=== PATIENT | female | born 1975 | race Caucasian/White ===

== ENCOUNTER → 2016-07-14 | Outpatient (CLI) | payer OTHER ==
[2016-07-14 13:34] LABS: BASO % 0.3 % (0.0-1.0); EOS # 0.2 K/mm3 (0.0-0.50); EOS % 1.7 % (0.0-3.0); LARGE UNSTAINED CELL # 0.1 K/mm3 (0.0-0.4); LARGE UNSTAINED CELL % 1.5 % (0.0-4.0); LYMPH # 1.2 K/mm3 (1.5-4.5); LYMPH % 14.1 % (24.0-44.0); MEAN CORPUSCULAR HGB CONC 34.6 g/dl (32.0-36.5); MEAN CORPUSCULAR VOLUME 98.3 fl (80.0-96.0); MONO # 0.3 K/mm3 (0.0-0.8); MONO % 3.8 % (0.0-5.0); NEUTROPHILS # 6.8 K/mm3 (1.8-7.7); NEUTROPHILS % 78.6 % (36.0-66.0); PLATELET COUNT, AUTOMATED 242 k/mm3 (150-450); RED CELL DISTRIBUTION WIDTH 13.3 % (11.5-14.5); WHITE BLOOD COUNT 8.6 K/mm3 (4.0-10.0)
[2016-07-14 14:01] LABS: HBsAg Prenatal NEGATIVE (NEGATIVE)
[2016-07-14 14:54] LABS: HIV SCRN NEGATIVE (NEGATIVE)
[2016-07-14 14:55] LABS: CONTROL LINE INT CTR LINE PRESENT; HIV SCRN1 NEGATIVE (NEGATIVE)
== END ==
LOC: M WUC 08:44
PROVIDERS: ATTEND Advanced Practice Midwife
DX: Z34.81 Encounter for supervision of other normal pregnancy, first trimester (principal)

== ENCOUNTER → 2016-07-16 | Outpatient (CLI) | payer OTHER ==
--- NOTE | 2016-07-16 11:22 | REP ---
OBSTETRIC SONOGRAPHY: HISTORY: Supervision of . FINDINGS: Scanning demonstrates a viable single intrauterine gestation in a transverse, head to the maternal right lie. motion is observed and heart rate is recorder 153 beats per minute. A posterior placenta is seen without evidence of abruption. The placenta appears to extend down over the internal cervical os on today's images. Placenta previa is suspected. No extrauterine abnormality is observed. No gross anomaly is seen. it is too early for complete anatomic screening. cranium, choroid plexus, left-sided stomach, abdominal wall cord insertion, urinary bladder, and upper and lower extremities are seen and appear normal. Closed cervical length is 3.6 cm. BIOMETRY CHART: CRL 6.2 cm = 12 weeks 4 days BPD 2.0 cm = 13 weeks 1 day HC 7.2 cm = 13 weeks 0 days AC 5.7 cm = 12 weeks 4 days FL 0.7 cm = 12 weeks 1 day HC/AC ratio normal 1.26 Cephalic index 0.76. Estimated weight 58 grams, 0 pounds 2 ounces, 45th percentile for 12 weeks 1 day. IMPRESSION: 1. Viable single intrauterine gestation at 12 weeks 5 days by today's composite sonographic criteria. [place] by today's sonography is January 23, 2017.2. Posterior placenta appears to cover the internal cervical os at this stage of . Consider follow-up scan. Signed by Davi Navarrete MD 07/16/2016 06:34 P
== END ==
LOC: M SMT 09:28
PROVIDERS: ATTEND Advanced Practice Midwife
DX: Z34.81 Encounter for supervision of other normal pregnancy, first trimester (principal)

== ENCOUNTER → 2016-08-13 | Outpatient (CLI) | payer OTHER | LOC: M SMT 09:20 | PROVIDERS: ATTEND Specialist | DX: R76.0 Raised antibody titer (principal) ==

== ENCOUNTER → 2016-08-13 | Outpatient (REF) | payer OTHER | LOC: M LAB REF 12:45 | PROVIDERS: ATTEND Specialist | DX: Z34.82 Encounter for supervision of other normal pregnancy, second trimester (principal) ==

== ENCOUNTER → 2016-09-05 | Outpatient (CLI) | payer OTHER | LOC: M WUC 12:44 | PROVIDERS: ATTEND Specialist | DX: Z34.82 Encounter for supervision of other normal pregnancy, second trimester (principal) ==

== ENCOUNTER → 2016-09-10 | Outpatient (CLI) | payer OTHER ==
--- NOTE | 2016-09-10 13:51 | REP ---
OB ULTRASOUND: Real-time sonographic evaluation of the gravid uterus is performed utilizing transabdominal and endovaginal technique. There is a single living intrauterine gestation with an estimated gestational age of 20 weeks 1 day EDC 01/27/2017. Today's measurements indicate appropriate growth. BPD 50 mm = 21 weeks 2 days, 80th percentile HC 180 mm = 20 weeks 3 days, 60th percentile AC 155 mm = 20 weeks 5 days, 63rd percentile Femur length 32 mm = 20 weeks 0 days, 49th percentile HC/AC ratio 1.16 within normal range. Estimated weight 354 grams, 59th percentile. Cervix closed and measures 3.6 cm in length. heart rate 139 beats per minute. SEEN/GROSSLY UNREMARKABLE Lateral ventricles Yes Posterior fossa Yes Upper lip Yes Four-chamber heart Yes LVOT Yes RVOT Yes Stomach Yes Cord insertion Yes Three vessel cord Yes Kidneys Yes Bladder Yes Spine Yes position: Breech. Placenta: On the right and grade 1 with no previa or abruption. Amniotic fluid: Within normal limits. Signed by De Abad MD 09/10/2016 03:42 P
== END ==
LOC: M RAD 10:38
PROVIDERS: ATTEND Specialist
DX: Z34.82 Encounter for supervision of other normal pregnancy, second trimester (principal)

== ENCOUNTER → 2016-09-10 | Outpatient (CLI) | payer OTHER | LOC: M RAD 08:24 → M SMT 08:24 | PROVIDERS: ATTEND Specialist | DX: Z34.82 Encounter for supervision of other normal pregnancy, second trimester (principal); O44.22 Partial placenta previa NOS or without hemorrhage, second trimester ==

== ENCOUNTER → 2016-10-14 | Outpatient (CLI) | payer OTHER ==
[2016-10-14 20:28] LABS: ALBUMIN 3.4 GM/DL (3.2-5.2); ALBUMIN/GLOBULIN RATIO 0.87 (1.00-1.93); ALKALINE PHOSPHATASE 65 U/L (45-117); ALT/SGPT 38 U/L (12-78); BILIRUBIN,DIRECT < 0.1 MG/DL (0.0-0.2); BILIRUBIN,TOTAL 0.2 MG/DL (0.2-1.0); TOTAL PROTEIN 7.3 GM/DL (6.4-8.2)
[2016-10-15 08:00] LABS: AST/SGOT 27 U/L (15-37)
== END ==
LOC: M WUC 16:06 → M SMT 16:06
PROVIDERS: ATTEND Advanced Practice Midwife
DX: R21 Rash and other nonspecific skin eruption (principal)

== ENCOUNTER → 2016-10-24 | Outpatient (CLI) | payer OTHER ==
[2016-10-24 17:16] LABS: BASO % 0.1 % (0.0-1.0); EOS % 0.6 % (0.0-3.0); LARGE UNSTAINED CELL # 0.1 K/mm3 (0.0-0.4); LYMPH # 1.5 K/mm3 (1.5-4.5); MEAN CORPUSCULAR HEMOGLOBIN 33.9 pg (27.0-33.0); MEAN CORPUSCULAR HGB CONC 32.1 g/dl (32.0-36.5); MEAN CORPUSCULAR VOLUME 105.6 fl (80.0-96.0); MONO # 0.3 K/mm3 (0.0-0.8); MONO % 3.1 % (0.0-5.0); NEUTROPHILS % 80.2 % (36.0-66.0); PLATELET COUNT, AUTOMATED 308 k/mm3 (150-450); RED CELL DISTRIBUTION WIDTH 13.7 % (11.5-14.5); WHITE BLOOD COUNT 9.9 K/mm3 (4.0-10.0)
== END ==
LOC: M WUC 13:06
PROVIDERS: ATTEND Specialist
DX: Z34.82 Encounter for supervision of other normal pregnancy, second trimester (principal)

== ENCOUNTER → 2016-10-30 | Outpatient (CLI) | payer OTHER | LOC: M LAB 08:31 | PROVIDERS: ATTEND Obstetrics & Gynecology | DX: Z34.82 Encounter for supervision of other normal pregnancy, second trimester (principal) ==

== ENCOUNTER → 2016-10-30 | Outpatient (CLI) | payer OTHER | LOC: M LAB 08:29 | PROVIDERS: ATTEND Specialist | DX: Z34.82 Encounter for supervision of other normal pregnancy, second trimester (principal) ==

== ENCOUNTER → 2016-11-25 | Outpatient (CLI) | payer OTHER | LOC: M SMT 11:27 | PROVIDERS: ATTEND Obstetrics & Gynecology | DX: O09.522 Supervision of elderly multigravida, second trimester (principal) ==

== ENCOUNTER 2016-12-11 08:42 | Outpatient (CLI) | payer OTHER ==
[~2016-12-11] VITALS: Ht 157.5 cm; Wt 66.0 kg
[2016-12-11 08:57] VITALS: BP 122/69
[2016-12-11] MEDS ORDERED: MELA1LIQ PO (09:04)
[2016-12-11] MEDS ORDERED: PRENTAB9 PO (09:04)
[2016-12-11 09:45] VITALS: BP 117/68
== END 2016-12-11 10:00 | disposition home or self-care (01) ==
LOC: M LDO 08:42
PROVIDERS: ATTEND Specialist
DX: O9A.213 Injury, poisoning and certain other consequences of external causes complicating pregnancy, third trimester (principal); S80.11XA Contusion of right lower leg, initial encounter; S80.12XA Contusion of left lower leg, initial encounter; W19.XXXA Unspecified fall, initial encounter; Y92.018 Other place in single-family (private) house as the place of occurrence of the external cause; Y93.89 Activity, other specified; Y99.8 Other external cause status; Z3A.32 32 weeks gestation of pregnancy

== ENCOUNTER 2016-12-19 10:59 | Outpatient (CLI) | payer OTHER ==
[~2016-12-19] VITALS: Ht 157.5 cm; Wt 66.0 kg
[~2016-12-19 10:59] MED LIST: MELA1LIQ PO; PRENTAB9 PO
[2016-12-19 11:08] VITALS: BP 122/80
[2016-12-19] MEDS ORDERED: ACET50TA PO (11:12)
--- NOTE | 2016-12-19 12:20 | REP ---
Clinical: Prolonged decelerations for well being . Comparison: 09/10/2016 . Findings: Examination demonstrates a single live intrauterine in cephalic presentation. motion is identified by technologist. Placenta is noted right laterally and grade one without evidence for placenta previa or abruption. Amniotic fluid volume is normal. Cervix measures 3.3 cm in length and appears closed. No evidence for nuchal cord. Gestational age by LMP 35 weeks 0 days with [place] 01/23/2017 . Gestational age by current measurements 35 weeks 5 days with [place] 01/18/2017 . FHR equals 147 beats per minute. BPD 9.0 cm 36 weeks 3 days HC 32.1 cm 36 weeks 1 day AC 33.3 cm 37 weeks 1 day FL 6.7 cm 34 weeks 4 days HL 5.9 cm 34 weeks 3 days HC/AC ratio 0.96 Estimated weight 2916 grams ( 73rd percentile). Amniotic fluid index equals 14.7 cm (7.9 - 24.9). Umbilical cord SD ratio equals 2.50 (2.00 - 3.00). Biophysical profile score equals 8/8. Impression: 1. Single live advanced gestation in cephalic presentation demonstrating appropriate interval growth. 2. Biophysical profile score equals 8/8. 3. Estimated weight and amniotic fluid index are normal. Signed by Bertin Rangel MD 12/19/2016 12:12 P
[2016-12-26 08:06] LABS: GC Carboxy THC 42 ng/mL (Cutoff=10)
== END 2016-12-19 13:29 | disposition home or self-care (01) ==
LOC: M LDO 10:59
PROVIDERS: ATTEND Specialist
DX: O76 Abnormality in fetal heart rate and rhythm complicating labor and delivery (principal); O36.1130 Maternal care for Anti-A sensitization, third trimester, not applicable or unspecified; Z3A.35 35 weeks gestation of pregnancy

== ENCOUNTER → 2017-01-02 | Outpatient (REF) | payer OTHER ==
[~2017-01-02] MED LIST changes: +ACET50TA PO; +IBUP-1114 PO
== END ==
LOC: M LAB REF 13:07
PROVIDERS: ATTEND Advanced Practice Midwife
DX: O09.523 Supervision of elderly multigravida, third trimester (principal); Z3A.00 Weeks of gestation of pregnancy not specified

== ENCOUNTER 2017-01-10 14:29 | Inpatient (IN) | payer OTHER ==
[~2017-01-10] VITALS: Ht 157.5 cm; Wt 66.0 kg
[~2017-01-10 14:29] MED LIST changes: -IBUP-1114 PO
[2017-01-10 15:10] VITALS: BP 124/82
[2017-01-10] MEDS: miSOPROStol 50 MCG 1/2 TAB (S0191) PO SCH ×2 (15:44→20:00)
[2017-01-10 16:03] LABS: MEAN CORPUSCULAR HEMOGLOBIN 33.8 pg (27.0-33.0); MEAN CORPUSCULAR HGB CONC 34.1 g/dl (32.0-36.5); MEAN CORPUSCULAR VOLUME 99.1 fl (80.0-96.0); RED CELL DISTRIBUTION WIDTH 14.5 % (11.5-14.5); WHITE BLOOD COUNT 8.5 K/mm3 (4.0-10.0)
[2017-01-10 16:51] VITALS: BP 127/77
[2017-01-10 19:30] VITALS: BP 120/76
[2017-01-10 20:30] VITALS: BP 118/76
--- NOTE | 2017-01-10 21:05 | HPE ---
DATE OF ADMISSION: 01/10/2017 HISTORY: A 41-year-old 6, para 4 female at 37 and 2/7 weeks gestation by last menstrual period, consistent with a 12-week ultrasound, estimated date of confinement (EDC) 01/29/2017, presents for labor induction. Indication for induction is presence of irregular antibodies maternal blood stream, with increasing antibody titers suggestive of isoimmunization affecting the fetus. The patient denies contractions or vaginal bleeding. COURSE: The patient initiated care at 11 weeks gestation 07/16/2016. Her first trimester blood pressure was 120/72, weight 137 pounds. She had abnormal antibodies, abnormal anti-JKA antibodies noted in the first trimester, and titers have continually increased. She had a maternal medicine (MFM) consult in [place], and had regular titers and ultrasounds, so she had her consults at the center for this problem. She had early placenta previa which did resolve completely. OBSTETRICAL HISTORY: 1. August 1995, 40-week vaginal delivery 6 pound 13 ounce female . 2. May 2004, 40-week vaginal delivery 7 pound 13 ounce male infant. 3. May 2003, 38-week vaginal delivery 6 pound 4 ounce male . 4. February 2007, 41-week vaginal delivery 6 pound 3 ounce male infant. 5. December 2015, miscarriage. MEDICAL HISTORY: Noncontributory. SURGERIES: None. ALLERGIES: None. SOCIAL HISTORY: Father of the baby is involved. The patient denies cigarettes, alcohol or drug use during . FAMILY HISTORY: Noncontributory. PHYSICAL EXAMINATION: VITAL SIGNS: Blood pressure 124/64, weight 155 pounds, pulse 84. GENERAL: She is in no apparent distress. HEAD/NECK: Exam normal. LUNGS: Clear. HEART: Regular rate and rhythm. ABDOMEN: Nontender, gravid. heart tones category one. Contractions irregular. STERILE VAGINAL EXAM: 2 cm, 70% effaced. -2 station, vertex. EXTREMITIES: Nontender. LABORATORY DATA: Blood type A positive. Rubella immune. RPR nonreactive. Hepatitis B and C negative. HIV negative. GBS negative. ASSESSMENT: A 41-year-old 6, para 4 female at 37-2/7 weeks gestation with irregular maternal antibodies suggestive of isoimmunization. PLAN: For labor induction. Risks of induction were discussed. The patient is admitted on 01/10/2017.
[2017-01-10 21:30] VITALS: BP 122/78
[2017-01-10 22:30] VITALS: BP 124/80
[2017-01-10] MEDS ORDERED: LR 1,000 ML IV SCH (22:39)
[2017-01-10] MEDS ORDERED: OXYTOCIN DRIP 30 UNITS in APPROPRIATE DILUENT 1 EA IV SCH (22:45)
[2017-01-10] MEDS ORDERED: FENTANYL 2MCG/ML ROPIVACAINE 0.2% IN 0.9% NACL 200ML IVBAG As Ordered ONE (23:48)
[2017-01-11] MEDS ORDERED: EPIDURAL/PCA KEYS XX PRN
[2017-01-11] MEDS ORDERED: LACTATED RINGER'S 1000 ML IV PRN
[2017-01-11] MEDS ORDERED: NALOXONE INJ 0.4 MG/1 ML VIAL (J2310) IV PRN
[2017-01-11] MEDS ORDERED: diphenhydrAMINE INJ 50MG/ML VIAL (J1200) IV PRN
[2017-01-11] MEDS ORDERED: ePHEDrine SULFATE 25 MG/5 ML(5MG/ML) SYRINGE IV PRN
[2017-01-11] MEDS ORDERED: EPIDURAL COMMENT XX SCH
[2017-01-11] MEDS ORDERED: FENTANYL/ROPIVACAINE/NACL BAG 200 ML EPIDURAL SCH
[2017-01-11] MEDS ORDERED: REFRIGERATOR IV KEYS XX PRN
[2017-01-11 00:19] VITALS: BP 171/96
[2017-01-11] MEDS ORDERED: LIDOCAINE 1% MDV INJ 50 ML VIAL SC ONE (01:00)
[2017-01-11 01:02] VITALS: BP 130/69
[2017-01-11 01:31] VITALS: BP 131/72
[2017-01-11] MEDS ORDERED: ONDANSETRON 4MG/2ML VIAL (J2405) IV PRN ×2 (02:00)
[2017-01-11] MEDS ORDERED: OXYTOCIN DRIP 30 UNITS in APPROPRIATE DILUENT 1 EA IV ONE (02:00)
[2017-01-11] MEDS ORDERED: DIBUCAINE 1% OINTMENT 30GM TOP PRN (02:00)
[2017-01-11] MEDS ORDERED: MEASLES,MUMPS,RUBELLA VACCINE INJ (MMR-II) (90707) SC SCH (02:00)
[2017-01-11] MEDS ORDERED: DOCUSATE SODIUM 100 MG CAP PO PRN (02:00)
[2017-01-11] MEDS ORDERED: METHYLERGONOVINE MALEATE 0.2 MG TAB PO PRN (02:00)
[2017-01-11] MEDS ORDERED: RHOGAM 300 MCG (1500 IU) INJ (J2790) IM SCH (02:00)
[2017-01-11 03:31] VITALS: BP 147/72
[2017-01-11 06:21] VITALS: BP 118/69
[2017-01-11] MEDS: IBUPROFEN 800 MG TAB PO PRN ×2 (06:37→15:14)
[2017-01-11] MEDS: PRENATAL VITAMINS CHEWABLE TABLET PO SCH (09:07)
[2017-01-11 18:27] VITALS: BP 130/76
[2017-01-11] MEDS: ACETAMINOPHEN 500 MG TAB PO PRN (19:36)
[2017-01-11] MEDS ORDERED: LIDOCAINE 1% MDV INJ 50 ML VIAL As Ordered ONE (19:47)
[2017-01-12 05:30] VITALS: BP 125/77
[2017-01-12] MEDS: PRENATAL VITAMINS CHEWABLE TABLET PO SCH (09:01)
--- NOTE | 2017-01-12 09:12 | DN ---
DATE OF DELIVERY: 01/11/2017 PREDELIVERY DIAGNOSIS: 37 weeks, maternal isoimmunization with JKA antibodies. POSTDELIVERY DIAGNOSIS: Delivered. PROCEDURE: Spontaneous vaginal delivery. SIGNALS COLLECTOR/ANALYST: Yosi García MD ANESTHESIA: None. ESTIMATED BLOOD LOSS: 300 mL. FINDINGS: 7 pound 8 ounce male , scores 9 and 9. DELIVERY SUMMARY: After a short second stage, the patient had spontaneous delivery of a 7 pound 8 ounce male infant, scores of 9 and 9, with no delivery anesthesia. There was no nuchal cord. The shoulders delivered with ease. The cried spontaneously and was handed to the mother. The cord was doubly clamped and cut. The placenta delivered spontaneously and appeared to be intact. A small secondary perineal laceration was repaired with #2-0 chromic under local anesthesia in the usual fashion. Sponge counts were correct.
[2017-01-12] MEDS: IBUPROFEN 800 MG TAB PO PRN (14:55)
[2017-01-12 17:50] VITALS: BP 139/78
[2017-01-12] MEDS: ACETAMINOPHEN 500 MG TAB PO PRN (21:34)
[2017-01-13 05:40] VITALS: BP_SYST 118; BP_SYST 121; BP_DIAS 64; BP_DIAS 77
[2017-01-13] MEDS ORDERED: IBUP-1114 PO (07:14)
[2017-01-13] MEDS: PRENATAL VITAMINS CHEWABLE TABLET PO SCH (08:03)
== END 2017-01-13 11:10 | disposition home or self-care (01) | DRG 560 ==
LOC: M LDI 14:29 → M OBS 01-11 03:21
PROVIDERS: ADMIT Specialist; ATTEND Specialist
PROC: 3E0DXGC Introduction of Other Therapeutic Substance into Mouth and Pharynx, External Approach (ICD-10-PCS; 2017-01-10)
PROC: 10E0XZZ Delivery of Products of Conception, External Approach (ICD-10-PCS; principal; 2017-01-11)
PROC: 0KQM0ZZ Repair Perineum Muscle, Open Approach (ICD-10-PCS; 2017-01-11)
DX: O36.1930 Maternal care for other isoimmunization, third trimester, not applicable or unspecified (principal); O70.1 Second degree perineal laceration during delivery; Z37.0 Single live birth; Z3A.37 37 weeks gestation of pregnancy

== ENCOUNTER → 2017-06-27 | Outpatient (CLI) | payer OTHER | LOC: M ADAMS 12:16 | DX: S20.211A Contusion of right front wall of thorax, initial encounter (principal); M25.531 Pain in right wrist; X58.XXXA Exposure to other specified factors, initial encounter; Y92.89 Other specified places as the place of occurrence of the external cause; Y93.89 Activity, other specified; Y99.8 Other external cause status | CPT/HCPCS: 71101 ==

== ENCOUNTER 2018-08-17 09:33 | Emergency (ER) | payer OTHER ==
[~2018-08-17] VITALS: Ht 154.9 cm; Wt 54.5 kg
[~2018-08-17 09:33] MED LIST changes: -ACET50TA PO; +IBUP-1114 PO; +MAPA500T2 PO
[2018-08-17] MEDS ORDERED: KETOROLAC TROMETHAMINE 10 MG TAB PO ONE (10:30)
--- NOTE | 2018-08-17 10:35 | REP ---
Clinical: Trauma/fall . Comparison: None . Findings: The ventricles, sulci, and cisterns are normal in position and appearance. Abad-white differentiation is maintained. No acute intracranial hemorrhage, mass/mass effect, pathology or trauma/injury. No evidence for acute infarction. No extra-axial fluid collection. Calvarium is intact. Paranasal sinuses and mastoid air cells are clear. Impression: Normal noncontrast head CT. No evidence for acute intracranial pathology or trauma/injury. Electronically Signed by Bertin Rangel MD 08/17/2018 10:27 A
--- NOTE | 2018-08-17 10:37 | REP ---
Clinical: Trauma/fall. Technique: Axial noncontrast images from the skull base to the thoracic inlet with coronal and sagittal re-formations. Findings: Straightening of normal lordosis may be secondary to positioning versus pain/spasm. Mild age-related changes are appreciated. Alignment is maintained. There is no evidence for acute fracture / compression injury or subluxation. Spinal canal is patent. Posterior elements and spinous processes are intact. Paravertebral soft tissues are normal. Partial fusion to C2-C3 vertebral bodies noted. Impression: 1. No acute cervical spine pathology or trauma/injury. 2. Straightening of normal lordosis may be secondary to positioning versus pain/spasm. Electronically Signed by Bertin Rangel MD 08/17/2018 10:28 A
[2018-08-17] MEDS ORDERED: KETO10TAB PO (10:39)
--- NOTE | 2018-08-17 10:39 | REP ---
CT Lumbar Spine without contrast HISTORY: Fall. COMPARISON: None There is no disc bulge or herniation at the L1-2 through L3-4 and L5-L1 levels. The nerves exit the neural foramina without compression. A diffuse disc bulge is present at the L4-5 level. There is minimal compression of the thecal sac. The L4 nerves exit the neural foramina without compression. The intervertebral discs and vertebral bodies are normal in height. There is no acute fracture or subluxation. There is spina bifida occulta of S1. A rudimentary disc is present at the S1-2 level. IMPRESSION: Diffuse disc bulge at the L4-5 level with minimal thecal sac compression. Electronically Signed by Yosi Neri MD 08/17/2018 10:32 A
[2018-08-17 10:55] VITALS: BP 131/86
== END 2018-08-17 10:56 | disposition home or self-care (01) ==
LOC: M ED 09:33
DX: S06.0X1A Concussion with loss of consciousness of 30 minutes or less, initial encounter (principal); S30.0XXA Contusion of lower back and pelvis, initial encounter; W00.0XXA Fall on same level due to ice and snow, initial encounter; Y92.098 Other place in other non-institutional residence as the place of occurrence of the external cause; J45.909 Unspecified asthma, uncomplicated

== ENCOUNTER → 2018-10-29 | Outpatient (CLI) | payer OTHER ==
[~2018-10-29] MED LIST changes: +KETO10TAB PO
--- NOTE | 2018-10-29 15:36 | REP ---
HISTORY: Rib pain on the right after coughing. Accompanying frontal view of the chest compared to the prior frontal view of the chest of 03/17/2015. The accompanying frontal view of the chest is normal and unchanged. Multiple views right ribs shows no evidence of an acute fracture or destructive osseous lesion. Electronically Signed by Kevan Michelle DO 10/29/2018 03:36 P
== END ==
LOC: M WUC 12:25
PROVIDERS: ATTEND Physician Assistant
DX: S29.011A Strain of muscle and tendon of front wall of thorax, initial encounter (principal); X58.XXXA Exposure to other specified factors, initial encounter; Y92.89 Other specified places as the place of occurrence of the external cause

== ENCOUNTER → 2019-02-02 | Outpatient (REF) | payer OTHER ==
[2019-02-02 21:49] LABS: APPEARANCE, URINE CLOUDY (CLEAR); BACTERIA, URINE AUTO 1+ (NEGATIVE); BILIRUBIN, URINE AUTO NEGATIVE (NEGATIVE); BLOOD, URINE BLOOD NEGATIVE (NEGATIVE); CALCIUM OXALATE CRYSTALS LARGE; COLOR, URINE YELLOW (YELLOW); GLUCOSE, URINE (UA) AUTO NEGATIVE (NEGATIVE); KETONE, URINE AUTO TRACE mg/dL (NEGATIVE); LEUKOCYTE ESTERASE, URINE AUTO 3+ (NEGATIVE); MUCUS, URINE MODERATE (NEGATIVE); NITRITE, URINE AUTO POSITIVE (NEGATIVE); PROTEIN, URINE AUTO NEGATIVE (NEGATIVE); RBC, URINE AUTO 7 /HPF (0-3); SPECIFIC GRAVITY URINE AUTO 1.028 (1.002-1.035); SQUAMOUS EPITHELIAL CELL UR AU 12 /HPF (0-6); UROBILINOGEN, URINE AUTO 0.2 mg/dL (0.0-2.0); WBC, URINE AUTO 58 /HPF (0-3)
== END ==
LOC: M LAB REF 10:31
PROVIDERS: ATTEND Physician Assistant Medical
DX: N39.0 Urinary tract infection, site not specified (principal)

== ENCOUNTER → 2021-04-15 | Outpatient (CLI) | payer OTHER ==
[2021-04-15 18:09] LABS: FREE T4 0.96 NG/DL (0.76-1.46); THYROID STIMULATING HORMONE 0.56 uIU/ML (0.358-3.740)
[2021-04-15 18:10] LABS: CORTISOL AM 8.8 UG/DL (4.3-22.4)
[2021-04-15 18:11] LABS: FOLLICLE STIMULATING HORMONE 3.3 mIU/mL; LUTEINIZING HORMONE 2.6 mIU/mL; THYROID PEROXIDASE ANTIBODY 32.9 U/ML (<60.0)
== END ==
LOC: M WUC 10:32
PROVIDERS: ATTEND Nurse Practitioner Family
DX: R61 Generalized hyperhidrosis (principal)

== ENCOUNTER → 2021-08-09 | Outpatient (CLI) | payer OTHER | LOC: M PLARAD 13:48 | DX: M75.91 Shoulder lesion, unspecified, right shoulder (principal); M25.511 Pain in right shoulder ==

== ENCOUNTER 2021-08-13 12:22 | Emergency (ER) | payer OTHER ==
[~2021-08-13] VITALS: Ht 154.9 cm; Wt 58.0 kg
[2021-08-13 12:23] VITALS: BP 141/92
== END 2021-08-13 14:45 | disposition left against medical advice (07) ==
LOC: M ED 12:22
DX: Z53.29 Procedure and treatment not carried out because of patient's decision for other reasons (principal)

== ENCOUNTER → 2022-05-01 | Outpatient (CLI) | payer OTHER ==
[2022-05-01 17:13] LABS: BASO % 0.5 % (0.0-1.0); EOS # 0.1 10^3/uL (0.0-0.5); EOS % 1.2 % (0.0-3.0); HEMATOCRIT 38.6 % (36.0-47.0); HEMOGLOBIN 12.7 g/dl (12.0-15.5); LYMPH # 1.4 10^3/uL (1.5-5.0); LYMPH % 20.8 % (24.0-44.0); MEAN CORPUSCULAR HEMOGLOBIN 34.6 pg (27.0-33.0); MEAN CORPUSCULAR HGB CONC 32.9 g/dl (32.0-36.5); MEAN CORPUSCULAR VOLUME 105.2 fl (80.0-96.0); MONO # 0.6 10^3/uL (0.0-0.8); MONO % 9.2 % (2.0-8.0); NEUTROPHILS # 4.4 10^3/uL (1.5-8.5); PLATELET COUNT, AUTOMATED 330 10^3/uL (150-450); RED BLOOD COUNT 3.67 10^6/uL (4.00-5.40); WHITE BLOOD COUNT 6.5 10^3/uL (4.0-10.0)
[2022-05-01 18:52] LABS: ALBUMIN 3.9 GM/DL (3.2-5.2); BILIRUBIN,DIRECT 0.2 MG/DL (0.0-0.2); BILIRUBIN,TOTAL 0.6 MG/DL (0.2-1.0); TOTAL PROTEIN 7.3 GM/DL (6.4-8.2)
== END ==
LOC: M WUC 11:50
PROVIDERS: ATTEND Podiatrist Foot & Ankle Surgery
DX: B35.1 Tinea unguium (principal)

== ENCOUNTER → 2023-01-02 | Outpatient (CLI) | payer MEDICAID ==
[~2023-01-02] MED LIST changes: +MELA1DRO PO; -MELA1LIQ PO
== END ==
LOC: M OUTALCOH 07:59
PROVIDERS: ATTEND Psychiatry & Neurology Psychiatry
DX: Z03.89 Encounter for observation for other suspected diseases and conditions ruled out (principal)

== ENCOUNTER → 2024-05-04 | Outpatient (CLI) | payer OTHER | LOC: M WHC 12:21 | PROVIDERS: ATTEND Physician Assistant Medical | DX: Z12.31 Encounter for screening mammogram for malignant neoplasm of breast (principal); R92.333 Mammographic heterogeneous density, bilateral breasts ==

== ENCOUNTER → 2024-05-26 | Outpatient (CLI) | payer OTHER | LOC: M WHC 08:27 | PROVIDERS: ATTEND Physician Assistant Medical | DX: R92.8 Other abnormal and inconclusive findings on diagnostic imaging of breast (principal); N60.02 Solitary cyst of left breast ==

== ENCOUNTER → 2025-03-06 | Outpatient (REF) | payer OTHER | LOC: M LAB REF 17:15 | PROVIDERS: ATTEND Physician Assistant Medical | DX: B34.9 Viral infection, unspecified (principal) ==

== ENCOUNTER → 2025-06-13 | Outpatient (CLI) | payer OTHER ==
[~2025-06-13] MED LIST changes: +ISOVUE-370 76% 100 ML VIAL As Ordered ONE
== END ==
LOC: M RAD 12:44
PROVIDERS: ATTEND Otolaryngology
DX: K14.8 Other diseases of tongue (principal)
CPT/HCPCS: 70491; Q9967